=== PATIENT | female | born 1995 | race Hispanic/Latino ===

== ENCOUNTER 2024-08-13 12:03 | Emergency (ER) | payer BC, SELFPAY ==
[2024-08-13 12:05] VITALS: BP 144/97
--- NOTE | 2024-08-13 13:54 | ED.GENMED ---
History of Present Illness
General
Chief Complaint: Allergic Reaction
Source: patient and records
Time Seen by Provider: 08/13/24 13:01
History of Present Illness
History of Present Illness:
Note:
CHIEF COMPLAINT(S)
Suspected allergic reaction to an antibiotic.
HISTORY OF PRESENT ILLNESS
The patient is a 29-year-old female who recently started cefuroxime for a UTI and believes she is experiencing an allergic reaction to it. She reports symptoms of throat itching and itchy eyes, which began yesterday, as well as a rash which has
improved by today following benadryl. The patient has a history of severe allergic reactions and is concerned about experiencing anaphylaxis again, as she has in the past during an antibiotic course, necessitating a visit to the emergency room. She
previously experienced anaphylaxis with ciprofloxacin, PCN, and possibly sulfa drugs. The patient expresses concern about being without an medications for anapylaxis as she no longer has an EpiPen at home. She is being considered for further
urological evaluation due to recurrent urinary tract infections noting a history of frequent UTIs since childhood. Patient states her urinary symptoms included dysuria and frequency, these have all since subsided after she started her antibiotic
yesterday. Patient arrives with a culture report from the urgent care noting the infection was caused by Proteus mirabilis and has a culture and sensitivity report with this as well.
ALLERGIES
Known severe allergies to ciprofloxacin (causes anaphylaxis) and amoxicillin (causes anaphylaxis).
Past History
Past History
ED Past Medical History: Psychiatric (Anxiety) and Other (Anemia)
ED Past Surgical History: Cholecystectomy
Social History
Tobacco: Non-smoker
Alcohol: None
Drug: None
Personal:
Living: with family
Employment: Employed
Review of Systems
Review of Systems
All Other Systems: ROS reviewed and negative except as documented in HPI and ROS
Phy Exam
Physical Exam
Physical Exam:
GENERAL: Alert , in no apparent distress, very well-appearing, smiling and pleasant
EYE: conjunctiva clear
NECK: Supple
ENT: o/p clr, mmm. No lip edema, no posterior oropharyngeal edema, no anaphylactic signs
CARDIAC: Regular rate and rhythm
LUNGS: Clear breath sounds bilaterally, no acute respiratory distress, no wheezes/rales/rhonchi
NEUROLOGICAL: Alert and oriented
SKIN: Warm and dry, skin intact. No rash
MUSCULOSKELETAL: well perfused.
PSYCH: Normal and appropriate interaction.
Scores
Heart Failure Risk
Heart Failure Risk Score: Not Applicable
Heart Score for Chest Pain Patients
STEMI patient?: Not applicable
Withdrawal Assessment of Alcohol
Withdrawal Assessment Completed?: Not applicable
Course
Orders/Labs/Results
Orders:
Orders
08/13/24 13:53
Fosfomycin [Monurol] 3 gm PO ONCE ONE
Vital Signs
Initial and Last Documented VS:
Initial Vital Signs
Temp Pulse Resp BP Pulse Ox
98.2 F 96 18 144/97 99
08/13/24 12:05 08/13/24 12:05 08/13/24 12:05 08/13/24 12:05 08/13/24 12:05
Last Documented Vital Signs
Temp Pulse Resp BP Pulse Ox
98.2 F 96 18 144/97 99
08/13/24 12:05 08/13/24 12:05 08/13/24 12:05 08/13/24 12:05 08/13/24 12:05
MDM/Problems Addressed
Differential Diagnosis Includes:
The Differential Diagnosis includes, in no particular order and is not limited to:
1. Antibiotic-induced allergic reaction
2. Anaphylaxis
3. Interstitial cystitis
4. Chronic urinary tract infection
5. Non-antibiotic related urticaria or angioedema
MDM/Problems Addressed:
- Discussed provision of an epinephrine auto-injector for home use in case of anaphylactic reactions.
- Contact urology team/ID for recommendations on antibiotic therapy and further management of recurrent urinary symptoms.
- Consider alternative antibiotic options with careful monitoring due to the patient�s history of severe allergic reactions.
- Plan for following up with urologist for further evaluation
*Pulse Oximetry
Patient hypoxic: no
*Critical Care Note
Total Time (30-74mins, 75-104mins- exclusive of procedures): Not Applicable
Patient Management
Discussion with other providers: Inspector Hairspring
Escalation/DeEscalation of care consider admission/obs:
Case was discussed with urology and infectious disease, urology recommended getting antibiotic recommendations from ID but agrees patient needs close outpatient monitoring. I discussed with infectious disease possibility of starting fosfomycin
given patient's culture and sensitivity report was not amenable to other oral antibiotics and only intravenous antibiotics at this time given patient's well-appearing nature I did not feel she needed to be admitted. I discussed return precautions
to the ER with the patient and she was agreeable to this. I also prescribed the patient a new EpiPen for her to have at home to be used as needed. Information for urology provided for outpatient follow-up.
ED Attending Note
-
Portions of this chart may have been created with voice recognition software.� Occasional wrong word or��sound alike� substitutions may have occurred due to the inherent limitations of voice recognition software.
Discharge Plan
Departure
Patient Disposition: Home (Routine Discharge)
Date of Disposition: 08/13/24
Time of Disposition: 13:54
Patient with high blood pressure during this ER visit?: Yes
Discharge Problem:
Urinary tract infection
Instructions: Urinary tract infection in adults - ED discharge instructions
Prescriptions:
New
fosfomycin tromethamine 3 gram packet
1 packet PO Q3D Qty: 1 0RF
epinephrine [EpiPen] 0.3 mg/0.3 mL auto-injector
0.3 mg IM .STAT PRN (Reason: anaphylaxis) Qty: 1 0RF
No Action
prednisone 10 mg Tablet
See Rx Instructions .ROUTE .COMPLEX Qty: 30 0RF
Rx Instructions:
Take By Mouth:
40 mg daily x3 days, 30 mg daily x3 days,
20 mg daily x3 days, 10 mg daily x3 days.
Referrals:
Natty Tipton DO [Active, Urology]
Referral Note: Urology - Please call for appointment
NONE,* [Family Provider, Internal Medicine]
Interventions
Interventions:
*Risk Screen - Suicide Last Done: 08/13/24 12:05
*General Assessment Last Done: 08/13/24 12:05
*Neglect/Abuse Screening Last Done: 08/13/24 14:12
*ED- Fall Risk Assessment Last Done: 08/13/24 14:12
*ED COVID-19 Vaccine History Last Done: 08/13/24 14:12
*Nursing Disposition Last Done: 08/13/24 14:19
ED- Cardiac Assessment Last Done: 08/13/24 14:12
ED- Pulmonary Assessment Last Done: 08/13/24 14:12
ED-Skin Assessment Last Done: 08/13/24 14:12
Discharge Date and Time
Print Language: BENGALI
[2024-08-13] MEDS: MONUROL 3 GM PO (14:06)
== END 2024-08-13 14:21 | disposition home or self-care (01) ==
LOC: EMR 12:03
PROVIDERS: EMERGENCY PHYSICIAN Emergency Medicine
DX: N39.0 Urinary tract infection, site not specified (principal); Z90.49 Acquired absence of other specified parts of digestive tract; Z88.0 Allergy status to penicillin
CPT/HCPCS: 99283

== ENCOUNTER 2024-08-15 18:01 | Emergency (ER) | payer BC, SELFPAY ==
[2024-08-15 18:02] VITALS: BP 133/90
[2024-08-15 18:27] LABS: % Basophils 0.8 % (0-2); % Eosinophils 0.8 % (0-6); % Immature Granulocytes 0.1 % (0-0.5); % Lymphocytes 36.8 % (20.5-51.1); % Monocytes 6.8 % (1.7-9.3); % Neutrophils 54.7 % (42.2-75.2); Absolute Basophils 0.1 10^3/uL (0-0.2); Absolute Eosinophils 0.1 10^3/uL (0-0.7); Absolute Monocytes 0.6 10^3/uL (0.1-0.6); Absolute Neutrophils 4.5 10^3/uL (1.4-6.5); Hematocrit 44.1 % (37.0-47.0); Hemoglobin 14.8 g/dL (12.0-16.0); Mean Corp Hgb Conc. 33.6 g/dL (33.0-37.0); Mean Corpuscular Hgb 29.3 pg (27.0-31.0); Mean Corpuscular Volume 87.3 fL (81.0-99.0); Mean Platelet Volume 10.7 fL (7.4-10.4); Nucleated Red Blood Cells % 0 %; Platelet Count 227 10^3/uL (130-400); Red Blood Cell Count 5.05 10^6/uL (4.20-5.40); Red Cell Dist. Width 11.9 % (11.5-14.5); White Blood Cell Count 8.3 10^3/uL (4.8-10.8)
[2024-08-15 18:30] LABS: Urine Albumin Negative (Neg - Trace); Urine Bilirubin Negative (Negative); Urine Character Clear (Clear); Urine Color Yellow; Urine Glucose Negative (Negative); Urine Ketone 1+ (Negative); Urine Leukocyte Negative (Negative); Urine Nitrite Negative (Negative); Urine Occult Blood Negative (Negative); Urine Urobilinogen Negative (Neg - 1+)
[2024-08-15 18:54] LABS: HCG, Serum Qualitative Screen Negative
[2024-08-15 18:58] LABS: ALT (SGPT) 28 U/L (0-35); AST (SGOT) 28 U/L (14-36); Albumin 5.4 g/dl (3.5-5.0); Alkaline Phosphatase 87 U/L (38-126); Blood Urea Nitrogen 13 mg/dl (7-17); Calcium 10.2 mg/dl (8.4-10.2); Carbon Dioxide 25 mmol/L (22-30); Chloride 102 mmol/L (98-107); Glucose 84 mg/dl (70-99); Potassium 4.4 mmol/L (3.5-5.1); Sodium 139 mmol/L (135-145); Total Bilirubin 0.6 mg/dl (0.2-1.3); Total Protein 8.9 g/dl (6.3-8.2); eGFR > 60.00
[2024-08-15 19:46] VITALS: BP 118/83
[2024-08-15] MEDS: KEFLEX 500 MG PO (19:46)
[2024-08-15 19:47] VITALS: BMI 33.0
[2024-08-15 20:00] VITALS: BP 131/89
--- NOTE | 2024-08-15 20:51 | ED.GENMED ---
History of Present Illness
General
Chief Complaint: Urinary Symptoms
Time Seen by Provider: 08/15/24 18:33
History of Present Illness
History of Present Illness:
29-year-old female with history of frequent UTIs presenting to the emergency department for concern of persistent urinary tract infection. Patient reports for the past month she has had dysuria and urinary frequency. She went to urgent care, had a
confirmed UTI with urine culture sent as well as susceptibilities. Patient was prescribed cefuroxime, however felt that she got an allergic reaction to this medication. She also has allergies to sulfa antibiotics, Cipro, amoxicillin. Patient
arrives with urine culture, is resistant to Macrobid. She was seen in the hospital yesterday, and in discussion with infectious disease and urology, started on fosfomycin. Patient reports that she took 1 dose of the fosfomycin and felt that her
symptoms worsened and that she may be having an allergic reaction so she stopped the medication and return to the hospital. Notes some lower abdominal discomfort, denies fever. Also generalized back pain. Denies additional acute medical
complaints.
Past History
Past History
ED Past Medical History: Psychiatric (Anxiety) and Other (Anemia)
ED Past Surgical History: Cholecystectomy
Social History
Tobacco: Non-smoker
Alcohol: None
Drug: None
Personal:
Living: with family
Employment: Employed
Phy Exam
Physical Exam
Physical Exam:
General: Well-appearing, no clinical signs of dehydration, nontoxic and in no acute distress
HEENT: protecting airway
Neck: appears supple
CV: Normal heart rate, regular rhythm, no evidence of cyanosis
Resp: No accessory muscle use, no increased work of breathing, lungs clear to auscultation bilaterally
Abd: Soft and non-distended, no tenderness to palpation, no CVA tenderness
Extremities: No deformities, no swelling
Neuro: alert, no focal neurologic deficit
: deferred
Rectal: deferred
Psych: Normal affect
Skin: Intact
Course
Orders/Labs/Results
Orders:
Orders
08/15/24 18:05
Test Result ONCE
08/15/24 18:13
Complete Blood Count/With Diff Urgent
Comprehensive Metabolic Panel Urgent
HCG, Serum Qualitative Screen Urgent
Urinalysis Reflex To Culture Urgent
Date Specimen was Collected: 08/15/24
Time Specimen was Collected: 18:05
08/15/24 19:17
Cephalexin Monohydrate [Keflex] 500 mg PO NOW STA
Abnormal Lab Results
08/15/24
18:13
MPV 10.7 H fL
(7.4-10.4)
Total Protein 8.9 H g/dl
(6.3-8.2)
Albumin 5.4 H g/dl
(3.5-5.0)
Urine Ketones 1+ A
(Negative)
08/15/24 18:13
08/15/24 18:13
Vital Signs
Initial and Last Documented VS:
Initial Vital Signs
Temp Pulse Resp BP Pulse Ox
98.3 F 88 16 133/90 98
08/15/24 18:02 08/15/24 18:02 08/15/24 18:02 08/15/24 18:02 08/15/24 18:02
Last Documented Vital Signs
Temp Pulse Resp BP Pulse Ox
98.3 F 93 22 131/89 100
08/15/24 18:02 08/15/24 20:00 08/15/24 20:00 08/15/24 20:00 08/15/24 20:00
MDM/Problems Addressed
MDM/Problems Addressed:
29-year-old female with history of frequent UTIs presenting for persistent urinary symptoms. Vital signs on arrival are normal.
On exam patient is very well-appearing, nontoxic. Benign cardiac, pulmonary, abdominal exam. No significant tenderness to the abdomen or to the flank without present concern for pyelonephritis. Patient arrives with the urine culture on her cell
phone with sensitivities to resistances. At this time no present class of antibiotics that are oral that patient has not had an allergic reaction to. Labs obtained prior to my assessment, normal renal function. Urine without any sign of
infection, however may be secondary to actively being on antibiotics. Given her clinical stability, unremarkable exam, unremarkable workup, do not presently feel that she requires IV antibiotics. Patient notes that she had some itching to the
cefuroxime, however does not appear to have had a anaphylactic reaction or true allergy. Did question about cephalexin, believes that she has tolerated this medication in the past. Patient is sensitive to all cephalosporins on her culture. Will
try 1 dose of cephalexin in the ER and watch for an hour to ensure no allergic reaction.
21:00 - Patient without any allergic reaction. Feel stable for discharge with prescription for cephalexin. Patient has an upcoming urology appointment. She also has an EpiPen at home. Feel stable for discharge. Return precautions discussed
*Critical Care Note
Total Time (30-74mins, 75-104mins- exclusive of procedures): Not Applicable
ED Attending Note
-
Portions of this chart may have been created with voice recognition software.� Occasional wrong word or��sound alike� substitutions may have occurred due to the inherent limitations of voice recognition software.
Discharge Plan
Departure
Prescriptions:
No Action
prednisone 10 mg Tablet
See Rx Instructions .ROUTE .COMPLEX Qty: 30 0RF
Rx Instructions:
Take By Mouth:
40 mg daily x3 days, 30 mg daily x3 days,
20 mg daily x3 days, 10 mg daily x3 days.
fosfomycin tromethamine 3 gram packet
1 packet PO Q3D Qty: 1 0RF
epinephrine [EpiPen] 0.3 mg/0.3 mL auto-injector
0.3 mg IM .STAT PRN (Reason: anaphylaxis) Qty: 1 0RF
Referrals:
NONE,* [Family Provider, Internal Medicine]
Interventions
Interventions:
*Risk Screen - Suicide Last Done: 08/15/24 18:02
*General Assessment Last Done: 08/15/24 18:30
*Neglect/Abuse Screening Last Done: 08/15/24 18:02
*ED- Fall Risk Assessment Last Done: 08/15/24 18:30
*ED COVID-19 Vaccine History Last Done: 08/15/24 18:30
ED-Female Genitourinary Assessment Last Done: 08/15/24 18:31
Discharge Date and Time
Print Language: YI
[2024-08-15 21:00] VITALS: BP 123/81
== END 2024-08-15 21:35 | disposition home or self-care (01) ==
LOC: EMR 18:01
PROVIDERS: EMERGENCY PHYSICIAN Student in an Organized Health Care Education/Training Program
DX: N39.0 Urinary tract infection, site not specified (principal); Z90.49 Acquired absence of other specified parts of digestive tract
CPT/HCPCS: 99283; 80053; 81003; 84703; 85025

== ENCOUNTER → 2024-09-06 14:49 | Outpatient (REF) | payer BC, SELFPAY | LOC: HWRAD 14:49 | PROVIDERS: ATTENDING PHYSICIAN Nurse Practitioner | DX: N39.0 Urinary tract infection, site not specified (principal) | CPT/HCPCS: 76770 ==